=== PATIENT | female | born 1960 | race Caucasian/White ===

== ENCOUNTER → 2016-12-10 | Outpatient (CLI) | payer OTHER, BC | END | disposition home or self-care (01) | LOC: LABWHC1 08:07 | PROVIDERS: ATTEND Internal Medicine Endocrinology, Diabetes & Metabolism | DX: E03.9 Hypothyroidism, unspecified (principal) | CPT/HCPCS: 36415; 84443 ==

== ENCOUNTER → 2017-06-11 | Outpatient (CLI) | payer OTHER, BC | END | disposition home or self-care (01) | LOC: LABWHC1 07:30 | PROVIDERS: ATTEND Internal Medicine Endocrinology, Diabetes & Metabolism | DX: E03.8 Other specified hypothyroidism (principal) | CPT/HCPCS: 36415; 84443 ==

== ENCOUNTER → 2017-12-20 | Outpatient (CLI) | payer OTHER, BC | END | disposition home or self-care (01) | LOC: LABWHC1 07:45 | PROVIDERS: ATTEND Internal Medicine Endocrinology, Diabetes & Metabolism | DX: E03.8 Other specified hypothyroidism (principal) | CPT/HCPCS: 36415; 84443 ==

== ENCOUNTER → 2018-02-22 | Outpatient (CLI) | payer OTHER, BC ==
--- NOTE | 2018-02-24 09:56 | MM ---
Reason for exam: screening (asymptomatic). Last mammogram was performed 1 year and 4 months ago. History: Patient is postmenopausal and is nulliparous. Benign US breast aspiration single RT of the right breast, April 23, 2014. Benign cyst aspiration of the right breast, October 13, 2004. Benign ultrasound-guided cyst aspiration of the right breast, October 13, 2004. Cyst aspiration of the right breast. Excisional biopsy of the left breast. Took hormonal contraceptives for 10 years beginning at age 20. Physical Findings: A clinical breast exam by your physician is recommended on an annual basis and results should be correlated with mammographic findings. MG 3D Screening Mammo W/Cad Bilateral CC and MLO view(s) were taken. Prior study comparison: October 28, 2016, bilateral MG work up mamm w CAD BILAT. October 22, 2016, bilateral MG screening mammo w CAD. The breast tissue is heterogeneously dense. This may lower the sensitivity of mammography. No significant changes when compared with prior studies. ASSESSMENT: Negative, BI-RAD 1 RECOMMENDATION: Routine screening mammogram of both breasts in 1 year.
== END | disposition home or self-care (01) ==
LOC: RADMAMWWP 07:58
PROVIDERS: ATTEND Obstetrics & Gynecology
DX: Z12.31 Encounter for screening mammogram for malignant neoplasm of breast (principal)
CPT/HCPCS: 77063; 77067

== ENCOUNTER → 2018-06-07 | Outpatient (CLI) | payer OTHER, BC | END | disposition home or self-care (01) | LOC: LABWHC1 07:28 | PROVIDERS: ATTEND Internal Medicine Endocrinology, Diabetes & Metabolism | DX: E03.8 Other specified hypothyroidism (principal) | CPT/HCPCS: 36415; 84443 ==

== ENCOUNTER → 2019-02-24 | Outpatient (CLI) | payer OTHER ==
[2019-02-24 19:15] LABS: Albumin 4.5 g/dL (3.80-4.90); Albumin/Globulin Ratio 2.25 (1.60-3.17); Anion Gap 10.5 mmol/L (4.00-12.00); Calcium 10.2 mg/dL (8.7-10.3); Carbon Dioxide 26.5 mmol/L (21.6-31.8); Potassium 4.1 mmol/L (3.5-5.5); Total Bilirubin 0.5 mg/dL (0.2-1.2); Total Protein 6.5 g/dL (6.2-8.2)
== END ==
LOC: LABWHC1 13:06
PROVIDERS: ATTEND Specialist
DX: L65.9 Nonscarring hair loss, unspecified (principal)
CPT/HCPCS: 36415; 80053

== ENCOUNTER → 2019-06-14 | Outpatient (CLI) | payer OTHER ==
--- NOTE | 2019-06-14 14:26 | MM ---
Reason for exam: screening (asymptomatic). Last mammogram was performed 1 year and 4 months ago. History: Patient is postmenopausal and is nulliparous. Benign US breast aspiration single RT of the right breast, April 23, 2014. Benign cyst aspiration of the right breast, October 13, 2004. Benign ultrasound-guided cyst aspiration of the right breast, October 13, 2004. Cyst aspiration of the right breast. Excisional biopsy of the left breast. Took hormonal contraceptives for 10 years beginning at age 20. Physical Findings: A clinical breast exam by your physician is recommended on an annual basis and results should be correlated with mammographic findings. MG Screening Mammo w CAD Bilateral CC and MLO view(s) were taken. Prior study comparison: February 22, 2018, bilateral MG 3d screening mammo w/cad. October 28, 2016, bilateral MG work up mamm w CAD BILAT. The breast tissue is heterogeneously dense. This may lower the sensitivity of mammography. There are benign appearing round calcifications bilaterally. There is no discrete abnormality. ASSESSMENT: Benign, BI-RAD 2 RECOMMENDATION: Routine screening mammogram of both breasts in 1 year.
== END | disposition home or self-care (01) ==
LOC: RADMAMWWP 10:43
PROVIDERS: ATTEND Obstetrics & Gynecology
DX: Z12.31 Encounter for screening mammogram for malignant neoplasm of breast (principal)
CPT/HCPCS: 77067

== ENCOUNTER → 2020-02-01 | Outpatient (CLI) | payer SELFPAY ==
--- NOTE | 2020-02-01 10:07 | CT ---
EXAMINATION TYPE: CT heart w calcium score DATE OF EXAM: 02/01/2020 COMPARISON: None. HISTORY: Screening for cardiovascular disorder. 213.9 CT DLP: 84.8 mGycm Automated exposure control for dose reduction was used. CT CALCIUM SCORING Coronary calcium is a marker for plaque (fatty deposits) in a blood vessel or atherosclerosis (harden ing of the arteries). The presence and amount of calcium detected in a coronary artery by the CT sca n, indicates the presence and amount of atherosclerotic plaque. These calcium deposits appear years before the development of heart disease symptoms such as chest pain and shortness of breath. A calcium score is computed for each of the coronary arteries based upon the volume and density of th e calcium deposits. This can be referred to as your calcified plaque burden. It does not correspond directly to the percentage of narrowing in the artery but does correlate with the severity of the un derlying coronary atherosclerosis. PROCEDURE TECHNIQUE - Prospective Gating was used. Slice thickness: 3mm. Density threshold (HU): 130, Pixel threshold: 3, Algorithm: discrete. RESULTS Region: LM Calcium Score ([place]at[place]): 0 Region: RCA Calcium Score ([place]): 0 Region: LAD Calcium Score ([place]): 0 Region: CX Calcium Score ([place]at[place]): 0 Region: PDA Calcium Score ([place]): 0 Total: Calcium Score ([place]): 0 Incidental dominant right coronary artery filling PDA which is more common. No suspicious incidental finding in the [id number]. TOTAL CALCIUM SCORE: 0 IMPRESSION: Calcium Score: 0 Implication: No identifiable plaque. Risk of Coronary Artery Disease: Very low, generally less than 5%.
== END | disposition home or self-care (01) ==
LOC: RADCTMAIN 08:55
PROVIDERS: ATTEND Family Medicine
DX: Z13.6 Encounter for screening for cardiovascular disorders (principal); I25.10 Atherosclerotic heart disease of native coronary artery without angina pectoris; Z82.49 Family history of ischemic heart disease and other diseases of the circulatory system
CPT/HCPCS: 75571

== ENCOUNTER → 2021-01-15 | Outpatient (CLI) | payer OTHER ==
--- NOTE | 2021-01-17 11:36 | MM ---
Reason for exam: screening (asymptomatic). Last mammogram was performed 1 year and 7 months ago. History: Patient is postmenopausal and is nulliparous. Benign US breast aspiration single RT of the right breast, April 23, 2014. Benign cyst aspiration of the right breast, October 13, 2004. Benign ultrasound-guided cyst aspiration of the right breast, October 13, 2004. Cyst aspiration of the right breast. Excisional biopsy of the left breast. Took hormonal contraceptives for 10 years beginning at age 20. Physical Findings: A clinical breast exam by your physician is recommended on an annual basis and results should be correlated with mammographic findings. MG 3D Screening Mammo W/Cad Bilateral CC and MLO view(s) were taken. Prior study comparison: June 14, 2019, bilateral MG screening mammo w CAD. February 22, 2018, bilateral MG 3d screening mammo w/cad. The breast tissue is heterogeneously dense. This may lower the sensitivity of mammography. Finding: There is a suggested obscured oval mass in the upper outer quadrant, anterior, middle position of the right breast. There is a chronic nodularity in the left breast. ASSESSMENT: Incomplete: need additional imaging evaluation, BI-RAD 0 RECOMMENDATION: Ultrasound of the right breast. [facility] will attempt to contact patient to return for ultrasound.
== END | disposition home or self-care (01) ==
LOC: RADMAMWWP 14:33
PROVIDERS: ATTEND Family Medicine
DX: Z12.31 Encounter for screening mammogram for malignant neoplasm of breast (principal)
CPT/HCPCS: 77063; 77067; 82310; 83970

== ENCOUNTER → 2021-01-24 | Outpatient (CLI) | payer OTHER ==
--- NOTE | 2021-01-24 14:05 | USB ---
Reason for exam: additional evaluation requested from abnormal screening. History: Patient is postmenopausal and is nulliparous. Benign US breast aspiration single RT of the right breast, April 23, 2014. Benign cyst aspiration of the right breast, October 13, 2004. Benign ultrasound-guided cyst aspiration of the right breast, October 13, 2004. Cyst aspiration of the right breast. Excisional biopsy of the left breast. Took hormonal contraceptives for 10 years beginning at age 20. Physical Findings: Nurse did not find any significant physical abnormalities on exam. US Breast Workup Limited RT Technologist: Mariel Murphy Right limited breast ultrasound including focal area of concern, retroareolar and axilla demonstrates a 0.7 x 0.8 x 0.3cm oval, cystic lesion at 10 o'clock, a 1.4 x 0.7cm cystic cluster versus ducal cluster at 11 o'clock, a 0.7 x 0.7 x 0.4cm cystic cluster at 11 o'clock, a 0.3 x 0.3 x 0.2cm lesion too small to characterize at 9 o'clock, a 0.8 x 0.8 x 0.5cm cystic cluster at 9 o'clock and a duct at 9 o'clock. These results were verbally communicated with the patient and result sheet given to the patient on 01/24/21. ASSESSMENT: Probably benign, BI-RAD 3 RECOMMENDATION: Follow-up diagnostic mammogram of the right breast in 6 months.
== END ==
LOC: RADUSWWP 12:56
PROVIDERS: ATTEND Family Medicine
DX: N60.01 Solitary cyst of right breast (principal); Z78.0 Asymptomatic menopausal state

== ENCOUNTER → 2021-10-09 | Outpatient (CLI) | payer OTHER ==
--- NOTE | 2021-10-09 14:18 | MM ---
Reason for exam: follow-up at short interval from prior study. Last mammogram was performed 9 months ago. History: Patient is postmenopausal and is nulliparous. Benign US breast aspiration single RT of the right breast, April 23, 2014. Benign cyst aspiration of the right breast, October 13, 2004. Benign ultrasound-guided cyst aspiration of the right breast, October 13, 2004. Cyst aspiration of the right breast. Excisional biopsy of the left breast. Took hormonal contraceptives for 10 years beginning at age 20. Physical Findings: Nurse did not find any significant physical abnormalities on exam. MG 3D Diag Mammo W/Cad RT CC and MLO view(s) were taken of the right breast. Prior study comparison: January 15, 2021, bilateral MG 3d screening mammo w/cad. June 14, 2019, bilateral MG screening mammo w CAD. Focal asymmetry upper outer quadrant right breast is persistent. Ultrasound is recommended. These results were verbally communicated with the patient and result sheet given to the patient on 10/09/21. ASSESSMENT: Incomplete: need additional imaging evaluation, BI-RAD 0 RECOMMENDATION: Ultrasound of the right breast.
--- NOTE | 2021-10-09 14:20 | USB ---
Reason for exam: additional evaluation requested from abnormal screening. History: Patient is postmenopausal and is nulliparous. Benign US breast aspiration single RT of the right breast, April 23, 2014. Benign cyst aspiration of the right breast, October 13, 2004. Benign ultrasound-guided cyst aspiration of the right breast, October 13, 2004. Cyst aspiration of the right breast. Excisional biopsy of the left breast. Took hormonal contraceptives for 10 years beginning at age 20. US Breast Limited RT Right limited breast ultrasound including focal area of concern, retroareolar and axilla demonstrates three oval, cystic clusters measuring 1.0 x 0.9 x 0.4cm at 12 o'clock, 2.0 x 1.1 x 0.6cm at 11 o'clock and 0.5 x 0.3cm at 11 o'clock. These results were verbally communicated with the patient and result sheet given to the patient on 10/09/21. ASSESSMENT: Benign, BI-RAD 2 RECOMMENDATION: Return to routine screening mammogram schedule for both breasts. Back on schedule for December 2021.
== END | disposition home or self-care (01) ==
LOC: RADMAMWWP 09:02
PROVIDERS: ATTEND Family Medicine
DX: N60.01 Solitary cyst of right breast (principal); N64.89 Other specified disorders of breast; Z78.0 Asymptomatic menopausal state
CPT/HCPCS: 77061; 77065

== ENCOUNTER 2021-11-04 16:14 | Observation (INO) | payer OTHER ==
[2021-11-04 17:16] LABS: Basophils # (A) 0.1 k/uL (0-0.2); Basophils % (A) 1 %; Eosinophils # (A) 0.1 k/uL (0-0.7); Eosinophils % (A) 1 %; HCT 42.7 % (34.0-46.0); HGB 14.4 gm/dL (11.4-16.0); Lymphocytes # (A) 1.4 k/uL (1.0-4.8); Lymphocytes % (A) 16 %; MCH 31.1 pg (25.0-35.0); MCHC 33.8 g/dL (31.0-37.0); Mean Platelet Volume 7.3; Monocytes # (A) 0.4 k/uL (0-1.0); Monocytes % (A) 4 %; Neutrophils # (A) 6.9 k/uL (1.3-7.7); Neutrophils % (A) 78 %; Platelet Count 329 k/uL (150-450); RBC 4.64 m/uL (3.80-5.40); RDW 11.9 % (11.5-15.5); WBC 8.9 k/uL (3.8-10.6)
[2021-11-04 17:30] LABS: INR 0.9 (<1.2); Partial Thromboplastin Time 24.5 sec (22.0-30.0); Prothrombin Time 9.7 sec (9.0-12.0)
--- NOTE | 2021-11-04 17:30 | XR ---
EXAMINATION TYPE: XR chest 2V DATE OF EXAM: 11/04/2021 5:03 PM COMPARISON:None CLINICAL INDICATION:Female, 61 years old with history of Chest Pain; TECHNIQUE: Frontal and lateral views of the chest. FINDINGS: Lungs/Pleura: There is no evidence of pleural effusion, focal consolidation, or pneumothorax. Pulmonary vascularity: Unremarkable. Heart/mediastinum: Cardiomediastinal silhouette is unremarkable. Musculoskeletal: No acute osseous pathology. IMPRESSION: No acute cardiopulmonary disease/process.
--- NOTE | 2021-11-04 17:30 | ED ---
Chest Pain HPI - General Chief Complaint: Chest Pain Stated Complaint: Chest pain,back pain Time Seen by Provider: 11/04/21 16:48 Source: patient Mode of arrival: ambulatory Limitations: no limitations - History of Present Illness Initial Comments: 61-year-old female past history of Graves' disease presents emergency room and was reported chest pain. States that the chest pain started around 3 PM today while she was driving. Pain is graded as an 8 out of 10 in intensity and located in the substernal region of her chest. She has associated nausea and had 2 episodes of vomiting. Patient describes it as a pressure sensation. No diaphoresis. No cough, fevers or chills. Tried to take an aspirin however through it back up. History of similar in the past. Denies previous history of cardiac disease. Denies fevers or shortness of breath. Pain radiates straight through to the patient's back. No history of DVT or PE. No calf pain or swelli ng. No other alleviating, precipitating or modifying factors - Related Data Home Medications Medication Instructions Recorded Confirmed Ascorbic Acid [Vitamin C] 1,000 mg PO DAILY 11/04/21 11/04/21 Cholecalciferol [Vitamin D3 (25 25 mcg PO DAILY 11/04/21 11/04/21 Mcg = 1000 Iu)] Levothyroxine Sodium [Synthroid] 112 mcg PO DAILY 11/04/21 11/04/21 Magnesium 250 mg PO DAILY 11/04/21 11/04/21 Zinc 50 mg PO DAILY 11/04/21 11/04/21 hydroCHLOROthiazide [Hydrodiuril] 12.5 mg PO DAILY 11/04/21 11/04/21 Allergies Allergy/AdvReac Type Severity Reaction Status Date / Time No Known Allergies Allergy Verified 11/04/21 19:56 Review of Systems ROS Statement: Those systems with pertinent positive or pertinent negative responses have been documented in the HPI. ROS Other: All systems not noted in ROS Statement are negative. EKG Findings - EKG Comments: EKG Findings:: EKG demonstrates a sinus rhythm with a ventricular rate of 74. GA interval 168. QRS 90. QTC 441. No acute ST segment elevations or depressions concerning for ischemic changes Past Medical History Past Medical History: Hypertension Additional Past Medical History / Comment(s): Graves disease, fluid retention History of Any Multi-Drug Resistant Organisms: C-DIFF Date of last positivie culture/infection: 01/2013 Past Surgical History: Appendectomy Additional Past Surgical History / Comment(s): right eye, Past Psychological History: No Psychological Hx Reported Smoking Status: Never smoker Past Alcohol Use History: Occasional Past Drug Use History: None Reported General Exam Limitations: no limitations Course Vital Signs 11/04/21 11/04/21 11/04/21 16:25 16:41 16:44 Temperature 97.5 F L Pulse Rate 63 78 74 Respiratory 18 16 18 Rate Blood Pressure 181/99 185/93 176/84 O2 Sat by Pulse 98 99 98 Oximetry 11/04/21 11/04/21 11/04/21 18:00 18:30 19:41 Temperature Pulse Rate 69 69 73 Respiratory 20 21 18 Rate Blood Pressure 175/75 166/72 152/77 O2 Sat by Pulse 97 100 100 Oximetry Chest Pain MDM - MDM Upon arrival the patient is placed into room 1. Thorough history and physical exam was performed. 12-lead EKG was obtained and the patient is placed on continuous pulse ox and cardiac monitoring. Laboratory studies are obtained. Patient given 324 mg of aspirin and a sublingual nitro. First troponin is negative. Chest x-ray demonstrates no acute process. CT of the patient's chest demonstrates no evidence of pulmonary embolism. Patient is reevaluated and denies having any improvement in her pain with the nitro menstruation. She is given informal grams of morphine and reevaluated. Reports improvement in her symptoms at this time. I recommended hospitalization in order to trend her troponins for which the patient did agree to. Patient will be admitted to [facility]. She was taken to the floor in stable condition Disposition Clinical Impression: Chest pain Disposition: ADMITTED IP TO THIS HOSP Condition: Stable Is patient prescribed a controlled substance at d/c from ED?: No Decision to Admit Reason: Admit from EC Decision Date: 11/04/21 Decision Time: 19:28
[2021-11-04 17:34] LABS: Albumin 4.7 g/dL (3.5-5.0); Calcium 9.9 mg/dL (8.4-10.2); Magnesium 2.1 mg/dL (1.6-2.3); Potassium 3.8 mmol/L (3.5-5.1); Total Bilirubin 0.6 mg/dL (0.2-1.3); Total Protein 7.7 g/dL (6.3-8.2)
[2021-11-04] MEDS ORDERED: ASPIRIN 81 MG PO STA (17:40)
[2021-11-04] MEDS ORDERED: NITROGLYCERIN SL TABS 0.4 MG TAB SUBLINGUAL STA (17:40)
[2021-11-04] MEDS ORDERED: ONDANSETRON 4 MG/2 ML VIAL IVP STA (17:40)
[2021-11-04] MEDS ORDERED: MORPHINE SULFATE 4 MG/ML SYRINGE IVP STA (18:50)
--- NOTE | 2021-11-04 19:01 | CT ---
EXAMINATION TYPE: CT angio chest CT DLP: 421.9 mGycm, Automated exposure control for dose reduction was used. DATE OF EXAM: 11/04/2021 6:22 PM COMPARISON: Chest radiograph from same day. . CLINICAL INDICATION:Female, 61 years old with history of chest pain; PHH, chest pain TECHNIQUE/CONTRAST: CTA scan of the thorax is performed with IV Contrast, patient injected with 100 mL of Isovue 370, pul monary embolism protocol. MIP images are created and reviewed. FINDINGS: Pulmonary Artery: There is no evidence for a filling defect within the pulmonary vasculature to sugge st acute pulmonary embolism. The pulmonary artery is of normal size. Lungs/Pleura: No evidence of focal consolidation, pleural effusion or pneumothorax. Airway: Patent and grossly unremarkable. Heart: Within normal limits for size. Vasculature: No evidence of aortic aneurysm. Mediastinum: No gross evidence of adenopathy. Musculoskeletal: No acute osseous abnormalities Soft Tissues: Unremarkable. Lower neck: No significant findings. Upper Abdomen: No significant findings. IMPRESSION: No evidence of pulmonary embolism.
[2021-11-04] MEDS ORDERED: NALOXONE 0.4 MG/ML 1 ML VIAL IV PRN (19:29)
[2021-11-04] MEDS ORDERED: ONDANSETRON 4 MG/2 ML VIAL IVP PRN (22:38)
[2021-11-04] MEDS ORDERED: ACETAMINOPHEN TAB 325 MG TAB PO PRN (22:38)
[2021-11-05] MEDS ORDERED: LEVOTHYROXINE 112 MCG TAB PO SCH (06:30)
[2021-11-05] MEDS ORDERED: ASPIRIN 81 MG PO SCH (09:00)
[2021-11-05] MEDS ORDERED: hydroCHLOROthiazide 12.5 MG CAP PO SCH (09:00)
[2021-11-05 09:37] LABS: Basophils # (A) 0.04 X 10*3/uL (0.00-0.10); Basophils % (A) 0.4 %; Eosinophils # (A) 0.03 X 10*3/uL (0.04-0.35); Eosinophils % (A) 0.3 %; HCT 39.6 % (37.2-46.3); HGB 13.2 g/dL (12.0-15.0); Lymphocytes # (A) 1.42 X 10*3/uL (0.90-5.00); Lymphocytes % (A) 15.3 %; MCHC 33.3 g/dL (32.0-37.0); Mean Platelet Volume 9.9 fL (9.5-12.2); Monocytes # (A) 0.71 X 10*3/uL (0.20-1.00); Monocytes % (A) 7.7 %; Neutrophils # (A) 7.04 X 10*3/uL (1.80-7.70); Neutrophils % (A) 76.1 %; Platelet Count 317 X 10*3/uL (140-440); RBC 4.26 X 10*6/uL (4.10-5.20); WBC 9.26 X 10*3/uL (4.50-10.00)
--- NOTE | 2021-11-05 09:45 | P.CRDCN ---
History of Present Illness Consult date: 11/05/21 History of present illness: HISTORY OF PRESENT ILLNESS: This is a 61-year-old female with a past medical history significant for hypertension and hypothyroidism. Patient does not follow with a test tube maker. We have been asked to see the patient in consultation for chest pain. Patient examined at the bedside. Patient states yesterday she was taking her brother to a doctor's appointment and stopped for lunch afterwards her to [place]. Sh e states when she got home she began having chest discomfort. She states the pain was in the middle of her chest and went through her chest into her back. She reports mild shortness of breath at the time secondary to the pain. She denied any diaphoresis. She reports nausea. She states that she took an aspirin at home but ended up throwing it up. She states the pain lasted for approximately 5 hours and was finally relieved when she came to the hospital and received morphine. She currently denies chest pain or pressure. The patient does report a history of high blood pressure. She takes her blood pressure at home and it usually runs between 120 and 140. Patient's blood pressure was e levated when she first came to the hospital with a systolic in the 180s. Her blood pressure this morning has improved to 150/81. Patient is a nonsmoker. She denies any drug use or marijuana use. She reports alcohol use 1-2 times per month. She reports a family history of coronary artery disease. She states her mom and her sister both had heart attacks at the age of 57 and have both had bypass surgery. EKG reveals sinus mechanism with no signs of acute ischemia. Evidence of left ventricular hypertrophy. Chest xray no acute cardiopulmonary disease or process Chest CTA: No evidence of pulmonary embolism Laboratory data: WBC 9.26. Hemoglobin 13.2. Platelet count 317. Sodium 139. Potassium 3.8. BUN 19. Creatinine 0.83. Troponin negative 3. ProBNP 43. Current home cardiac medications include hydrochlorothiazide 12.5 mg daily REVIEW OF SYSTEMS: At the time of my exam: CONSTITUTIONAL: Denies fever or chills. HEENT: Denies blurred vision, vision changes, or eye pain. Denies hemoptysis CARDIOVASCULAR: Denies chest pain. Denies orthopnea. Denies PND. Denies palpitations RESPIRATORY: Denies shortness of breath. GASTROINTESTINAL: Denies abdominal pain. Denies nausea or vomiting. HEMATOLOGIC: Denies bleeding disorders. GENITOURINARY: Denies any blood in urine. SKIN: Denies pruitis. Denies rash. PHYSICAL EXAM: VITAL SIGNS: Reviewed. GENERAL: Well-developed in no acute distress. HEENT: Head is normocephalic. Pupils are equal, round. Sclerae anicteric. Mucous membranes of the mouth are moist. Neck supple. No JVD or thyromegaly LUNGS: Respirations even and unlabored. Lungs essentially clear to auscultation bilaterally. HEART: Regular rate and rhythm. S1 and S2 heard. ABDOMEN: Soft. Nondistended. Nontender. EXTREMITIES: Normal range of motion. No clubbing or cyanosis. Peripheral pulses intact. No lower extremity edema NEUROLOGIC: Awake and alert. Oriented x 3. ASSESSMENT: Chest pain, troponin negative x 3 Hypertension, uncontrolled on admission, improving Hypothyroidism Family history of premature coronary artery disease PLAN: An acute coronary event has been ruled out Obtain 2D echo to assess cardiac structure and function Continue to monitor blood pressure. If pressures remain on the higher side, will adjust medication regimen. Patient states her SBP at home runs 120-140. Further recommendations pending evaluation by Dr. Fontaine. Anticipate stress testing today. Nurse practitioner note has been reviewed by physician. Signing provider agrees with the documented findings, assessment, and plan of care. Past Medical History Past Medical History: Hypertension Additional Past Medical History / Comment(s): Graves disease, fluid retention History of Any Multi-Drug Resistant Organisms: C-DIFF Date of last positivie culture/infection: 01/2013 MDRO Source:: appendix Past Surgical History: Appendectomy Additional Past Surgical History / Comment(s): right eye, Past Psychological History: No Psychological Hx Reported Smoking Status: Never smoker Past Alcohol Use History: Occasional Past Drug Use History: None Reported Medications and Allergies Home Medications Medication Instructions Recorded Confirmed Type Ascorbic Acid [Vitamin C] 1,000 mg PO DAILY 11/04/21 11/04/21 History Cholecalciferol [Vitamin D3 (25 25 mcg PO DAILY 11/04/21 11/04/21 History Mcg = 1000 Iu)] Levothyroxine Sodium [Synthroid] 112 mcg PO DAILY 11/04/21 11/04/21 History Magnesium 250 mg PO DAILY 11/04/21 11/04/21 History Zinc 50 mg PO DAILY 11/04/21 11/04/21 History hydroCHLOROthiazide [Hydrodiuril] 12.5 mg PO DAILY 11/04/21 11/04/21 History Allergies Allergy/AdvReac Type Severity Reaction Status Date / Time No Known Allergies Allergy Verified 11/04/21 19:56 Physical Exam Vitals: Vital Signs Temp Pulse Pulse Resp BP BP Pulse Ox 11/05/21 07:00 98.2 F 76 18 150/81 99 11/05/21 02:00 98.6 F 96 16 143/82 98 11/04/21 20:00 98.5 F 72 16 159/85 99 11/04/21 19:41 73 18 152/77 100 11/04/21 18:30 69 21 166/72 100 11/04/21 18:00 69 20 175/75 97 11/04/21 16:44 74 18 176/84 98 11/04/21 16:41 78 16 185/93 99 11/04/21 16:25 97.5 F L 63 18 181/99 98 Intake and Output 11/04/21 11/05/21 11/05/21 22:59 06:59 14:59 Other: # Voids 1 2 Weight 83.007 kg Results 11/05/21 06:15 11/04/21 17:00 Cardiac Enzymes 11/04/21 11/04/21 11/04/21 Range/Units 17:00 17:00 22:17 AST 27 (14-36) U/L Troponin I <0.012 0.019 (0.000-0.034) ng/mL 11/05/21 Range/Units 00:04 AST (14-36) U/L Troponin I <0.012 (0.000-0.034) ng/mL Coagulation 11/04/21 Range/Units 17:00 PT 9.7 (9.0-12.0) sec APTT 24.5 (22.0-30.0) sec CBC 11/04/21 Range/Units 17:00 WBC 8.9 (3.8-10.6) k/uL RBC 4.64 (3.80-5.40) m/uL Hgb 14.4 (11.4-16.0) gm/dL Hct 42.7 (34.0-46.0) % Plt Count 329 (150-450) k/uL Comprehensive Metabolic Panel 11/04/21 Range/Units 17:00 Sodium 139 (137-145) mmol/L Potassium 3.8 (3.5-5.1) mmol/L Chloride 103 (98-107) mmol/L Carbon Dioxide 23 (22-30) mmol/L BUN 19 H (7-17) mg/dL Creatinine 0.83 (0.52-1.04) mg/dL Glucose 121 H (74-99) mg/dL Calcium 9.9 (8.4-10.2) mg/dL AST 27 (14-36) U/L ALT 19 (4-34) U/L Alkaline Phosphatase 96 (38-126) U/L Total Protein 7.7 (6.3-8.2) g/dL Albumin 4.7 (3.5-5.0) g/dL Current Medications Generic Name Dose Route Start Last Admin Trade Name Freq PRN Reason Stop Dose Admin Acetaminophen 650 mg 11/04/21 22:38 Acetaminophen Tab 325 Mg Tab PO Q6HR PRN Fever and/ or Pain Famotidine 20 mg 11/05/21 09:00 Famotidine 20 Mg/2 Ml Vial IV Q12HR [facility] Heparin Sodium (Porcine) 5,000 unit 11/05/21 09:00 Heparin Sodium,Porcine/Pf 5,000 Unit/0.5 Ml Syringe SQ Q12HR JOSE Hydrochlorothiazide 12.5 mg 11/05/21 09:00 Hydrochlorothiazide 12.5 Mg Cap PO DAILY JOSE Levothyroxine Sodium 112 mcg 11/05/21 06:30 11/05/21 05:13 Levothyroxine 112 Mcg Tab PO 112 mcg DAILY@0630 JOSE Administration Naloxone HCl 0.2 mg 11/04/21 19:29 Naloxone 0.4 Mg/Ml 1 Ml Vial IV Q2M PRN Opioid Reversal Ondansetron HCl 4 mg 11/04/21 22:38 Ondansetron 4 Mg/2 Ml Vial IVP Q6HR PRN Nausea And Vomiting Intake and Output 11/04/21 11/05/21 11/05/21 22:59 06:59 14:59 Other: # Voids 1 2 Weight 83.007 kg 11/04/21 17:00 11/04/21 17:00
--- NOTE | 2021-11-05 10:24 | ECHOF ---
Referral Reason:Rule out heart disease MEASUREMENTS -------- HEIGHT: 162.6 cm WEIGHT: 83.0 kg BP: 143/82 RVIDd: 2.9 cm (< 3.3) IVSd: 1.1 cm (0.6 - 1.1) LVIDd: 4.3 cm (3.9 - 5.3) LVPWd: 1.0 cm (0.6 - 1.1) IVSs: 1.5 cm LVIDs: 2.9 cm LVPWs: 1.8 cm LA Diam: 3.3 cm (2.7 - 3.8) LAESV Index (A-L): 25.41 ml/m Ao Diam: 3.1 cm (2.0 - 3.7) AV Cusp: 2.3 cm (1.5 - 2.6) MV EXCURSION: 17.614 mm (> 18.000) MV EF SLOPE: 127 mm/s (70 - 150) EPSS: 0.3 cm MV E Abilio: 0.96 m/s MV DecT: 163 ms MV A Abilio: 1.00 m/s MV E/A Ratio: 0.97 RAP: 5.00 mmHg RVSP: 29.84 mmHg FINDINGS -------- Sinus rhythm. This was a technically adequate study. The left ventricular size is normal. There is borderline concentric left ventricular hypertrophy. Overall left ventricular systolic function is normal with, an EF between 60 - 65 %. The right ventricle is normal in size. Normal LA size by volume 22+/-6 ml/m2. The right atrium is normal in size. Interatrial and interventricular septum intact. The aortic valve is trileaflet, and appears structurally normal. No aortic stenosis or regurgitation. Mild mitral annular calcification present. Mild tricuspid regurgitation present. Right ventricular systolic pressure is normal at < 35 mmHg. Trace/mild (physiologic) pulmonic regurgitation. The aortic root size is normal. Normal inferior vena cava with normal inspiratory collapse consistent with estimated right atrial pre ssure of 5 mmHg. There is no pericardial effusion. CONCLUSIONS -------- 1. The left ventricular size is normal. 2. There is borderline concentric left ventricular hypertrophy. 3. Overall left ventricular systolic function is normal with, an EF between 60 - 65 %. 4. The aortic valve is trileaflet, and appears structurally normal. No aortic stenosis or regurgitati on. 5. Mild mitral annular calcification present. 6. Mild tricuspid regurgitation present. 7. Trace/mild (physiologic) pulmonic regurgitation. 8. There is no pericardial effusion. [employer]: Harriet Lisa RDCS
[2021-11-05] MEDS: FAMOTIDINE 20 MG/2 ML VIAL IV SCH ×2 (10:45→10:51)
[2021-11-05] MEDS: HEPARIN SODIUM,PORCINE/PF 5,000 UNIT/0.5 ML SYRINGE SQ SCH ×2 (10:46→10:51)
[2021-11-05 11:21] LABS: African American GFR (CKD) 92.2 (60.0-200.0); Anion Gap 12.2 mmol/L (10.00-18.00); Blood Urea Nitrogen 12.8 mg/dL (9.0-27.0); Calcium 9.5 mg/dL (8.7-10.3); Carbon Dioxide 24.8 mmol/L (20.0-27.5); Non-African American GFR(CKD) 79.6 (60.0-200.0); Potassium 3.8 mmol/L (3.5-5.5)
--- NOTE | 2021-11-05 11:54 | P.HPIM ---
History of Present Illness This is a pleasant 61 years old female with past medical history of Hypertension,Graves disease, fluid retention, C-DIFF Patient presents because of chest pain which started yesterday it was described by the patient as severe nonspecific pain but now is resolved as 0/10 as she describes. The pain was radiating to the back. She vomited twice yesterday and this morning. No abdominal pain or diarrhea. No shortness breath or coughing. No headache or weakness. Vitas looks stable Labs unremarkable and including CBC, INR, BMP, liver enzymes, lipase Troponin are negative this and 0.012 and 0.019. No varus not detected. EKG showing normal sinus rhythm at [address]-T changes and QTC is 441 CTA of the chest: No evidence of pulmonary embolism In the emergency room patient was started on aspirin and morphine. She has been evaluated by tree specialist this morning and she's going for stress test Review of Systems Review of systems CONSTITUTIONAL: No fever, no malaise, no fatigue. HEENT: No recent visual problems or hearing problems. Denied any sore throat. CARDIOVASCULAR: No orthopnea, PND, no palpitations, no syncope. PULMONARY: No shortness of breath, no cough, no hemoptysis. GASTROINTESTINAL: No diarrhea, no nausea, no vomiting, no abdominal pain. Normoactive bowel sounds. NEUROLOGICAL: No headaches, no weakness, no numbness. HEMATOLOGICAL: Denies any bleeding or petechiae. GENITOURINARY: Denies any burning micturition, frequency, or urgency. MUSCULOSKELETAL/RHEUMATOLOGICAL: Denies any joint pain, swelling, or any muscle pain. ENDOCRINE: Denies any polyuria or polydipsia. Past Medical History Past Medical History: Hypertension Additional Past Medical History / Comment(s): Graves disease, fluid retention History of Any Multi-Drug Resistant Organisms: C-DIFF Date of last positivie culture/infection: 01/2013 MDRO Source:: appendix Past Surgical History: Appendectomy Additional Past Surgical History / Comment(s): right eye, Past Psychological History: No Psychological Hx Reported Smoking Status: Never smoker Past Alcohol Use History: Occasional Past Drug Use History: None Reported Medications and Allergies Home Medications Medication Instructions Recorded Confirmed Type Ascorbic Acid [Vitamin C] 1,000 mg PO DAILY 11/04/21 11/04/21 History Cholecalciferol [Vitamin D3 (25 25 mcg PO DAILY 11/04/21 11/04/21 History Mcg = 1000 Iu)] Levothyroxine Sodium [Synthroid] 112 mcg PO DAILY 11/04/21 11/04/21 History Magnesium 250 mg PO DAILY 11/04/21 11/04/21 History Zinc 50 mg PO DAILY 11/04/21 11/04/21 History hydroCHLOROthiazide [Hydrodiuril] 12.5 mg PO DAILY 11/04/21 11/04/21 History Allergies Allergy/AdvReac Type Severity Reaction Status Date / Time No Known Allergies Allergy Verified 11/04/21 19:56 Physical Exam Vitals: Vital Signs Temp Pulse Pulse Resp BP BP Pulse Ox 11/04/21 20:00 98.5 F 72 16 159/85 99 11/04/21 19:41 73 18 152/77 100 11/04/21 18:30 69 21 166/72 100 11/04/21 18:00 69 20 175/75 97 11/04/21 16:44 74 18 176/84 98 11/04/21 16:41 78 16 185/93 99 11/04/21 16:25 97.5 F L 63 18 181/99 98 Intake and Output 11/04/21 11/04/21 11/05/21 14:59 22:59 06:59 Other: # Voids 1 Weight 83.007 kg GENERAL: The patient is alert and oriented x3, not in any acute distress. Well developed, well nourished. HEENT: Pupils are round and equally reacting to light. EOMI. No scleral icterus. No conjunctival pallor. Normocephalic, atraumatic. No pharyngeal erythema. No thyromegaly. CARDIOVASCULAR: S1 and S2 present. No murmurs, rubs, or gallops. PULMONARY: Chest is clear to auscultation, no wheezing or crackles. ABDOMEN: Soft, nontender, nondistended, normoactive bowel sounds. No palpable organomegaly. MUSCULOSKELETAL: No joint swelling or deformity. -EXTREMITIES: No cyanosis, clubbing, bilateral pitting edema NEUROLOGICAL: Gross neurological examination did not reveal any focal deficits. SKIN: No rashes. no petechiae. Results CBC & Chem 7: 11/05/21 06:15 11/05/21 06:15 Labs: Abnormal Lab Results - Last 24 Hours (Table) 11/04/21 Range/Units 17:00 BUN 19 H (7-17) mg/dL Glucose 121 H (74-99) mg/dL Thrombosis Risk Factor Assmnt - Choose All That Apply Any of the Below Risk Factors Present?: Yes Each Factor Represents 1 point: Obesity (BMI >25) Other Risk Factors: Yes Each Risk Factor Represents 2 Points: Age 61-74 years Other congenital or acquired thrombophilia - If yes, enter type in comment: No Thrombosis Risk Factor Assessment Total Risk Factor Score: 3 Thrombosis Risk Factor Assessment Level: Moderate Risk Assessment and Plan Assessment: chest pain, rule out cardiac causes bilateral leg swelling Hypertension, uncontrolled admission History of Graves' disease History of C. diff Plan: This is a pleasant 61 years old female who presents with chest pain We'll do straight troponin, echocardiogram Cardiology consult recommended stress test which is pending Continue with aspirin Check ultrasound of the legs Labs and medication were reviewed.. Continue same treatment. Continue with symptomatic treatment. Resume home medication. Monitor lytes and vitals. DVT and GI prophylaxis. Further recommendations as per clinical course of the patient DVT prophylaxis: Subcutaneous heparin GI Prophylaxis: Pepcid PT/OT: Pending Prognosis is guarded
--- NOTE | 2021-11-05 13:52 | US ---
EXAMINATION TYPE: US venous doppler duplex LE DATE OF EXAM: 11/05/2021 1:40 PM COMPARISON: NONE CLINICAL HISTORY: leg swelling. SIDE PERFORMED: Bilateral TECHNIQUE: The lower extremity deep venous system is examined utilizing real time linear array sonog norma with graded compression, doppler sonography and color-flow sonography. VESSELS IMAGED: Common Femoral Vein Deep Femoral Vein Greater Saphenous Vein * Femoral Vein Popliteal Vein Small Saphenous Vein * Proximal Calf Veins (* superficial vessels) Right Leg: Negative for DVT Left Leg: Negative for DVT IMPRESSION: Grayscale, color doppler, spectral doppler imaging performed of the deep veins of the lo wer extremities. There is normal flow, compressibility, vascular waveforms.
--- NOTE | 2021-11-05 14:02 | ECHOS ---
STRESS ECHOCARDIOGRAM INDICATIONS: Chest pain. BASELINE HEART RATE: 85 BASELINE BLOOD PRESSURE: 141/52 MAXIMUM HEART RATE: 161 MAXIMUM BLOOD PRESSURE: 202/74 85% MPHR: 135 100% MPHR: 159 METS: 5.9 MAXIMUM STAGE REACHED: 2 TOTAL EXERCISE TIME: 6 min. CLINICAL INFORMATION: Baseline EKG shows sinus rhythm, normal axis, normal intervals. Patient exercised on Joe protocol for a total of 6 minutes, achieving 7 METS, 100% of predicted maximal heart rate, without chest pain or diagnostic ST-segment depression. Echo images are technically suboptimal and a contrast agent was used to enhance endocardial visualization. Baseline echo shows normal left ventricular size, wall motion and systolic function. Post exercise there is normal hyperdynamic response of all segments of myocardium noted. CONCLUSIONS: 1. Average exercise tolerance. 2. Negative stress test by EKG criteria. 3. Negative stress echo. MMBETHELL / IJN: [id number] /
[2021-11-05 14:43] VITALS: BP 138/85; PULSE 83; RESP 20; TEMP 98.1
== END 2021-11-05 16:36 | disposition home or self-care (01) ==
LOC: EC 16:14 → 6NMEDSUR 19:29
PROVIDERS: ADMIT Hospitalist; ATTEND Hospitalist
DX: R07.89 Other chest pain (principal); I11.9 Hypertensive heart disease without heart failure; E05.00 Thyrotoxicosis with diffuse goiter without thyrotoxic crisis or storm; R11.2 Nausea with vomiting, unspecified; R06.02 Shortness of breath; E03.9 Hypothyroidism, unspecified; R60.9 Edema, unspecified; E66.9 Obesity, unspecified; Z68.31 Body mass index [BMI] 31.0-31.9, adult; Z79.890 Hormone replacement therapy; Z79.899 Other long term (current) drug therapy; Z16.39 Resistance to other specified antimicrobial drug; Z90.49 Acquired absence of other specified parts of digestive tract; Z98.890 Other specified postprocedural states; Z82.49 Family history of ischemic heart disease and other diseases of the circulatory system
CPT/HCPCS: 96374; 96375; 99285; 36415; 93005; 93306; 93351; 83880; 80053; 80048; 83690; 83735; 84484 ×2; 85025 ×2; 85610; 85730; 87635; 71046; 93970; 71275; G0378 ×2; J2270; J2405; Q9950; Q9967

== ENCOUNTER → 2022-04-02 | Outpatient (CLI) | payer OTHER ==
--- NOTE | 2022-04-03 12:38 | MM ---
Reason for exam: screening (asymptomatic). Last mammogram was performed 6 months ago. History: Patient is postmenopausal and is nulliparous. Benign US breast aspiration single RT of the right breast, April 23, 2014. Benign cyst aspiration of the right breast, October 13, 2004. Benign ultrasound-guided cyst aspiration of the right breast, October 13, 2004. Cyst aspiration of the right breast. Excisional biopsy of the left breast. Took hormonal contraceptives for 10 years beginning at age 20. Physical Findings: A clinical breast exam by your physician is recommended on an annual basis and results should be correlated with mammographic findings. MG 3D Screening Mammo W/Cad Bilateral CC and MLO view(s) were taken. Prior study comparison: October 09, 2021, right breast MG 3d diag mammo w/cad RT. January 15, 2021, bilateral MG 3d screening mammo w/cad. The breast tissue is heterogeneously dense. This may lower the sensitivity of mammography. Stable benign calcifications. There is no discrete abnormality. No significant changes when compared with prior studies. ASSESSMENT: Benign, BI-RAD 2 RECOMMENDATION: Routine screening mammogram of both breasts in 1 year.
== END | disposition home or self-care (01) ==
LOC: RADMAMWWP 15:14
PROVIDERS: ATTEND Family Medicine
DX: Z12.31 Encounter for screening mammogram for malignant neoplasm of breast (principal); Z78.0 Asymptomatic menopausal state
CPT/HCPCS: 77063; 77067

== ENCOUNTER 2023-02-16 03:38 | Emergency (ER) | payer OTHER ==
[2023-02-16 03:43] VITALS: RESP 18; TEMP 97.9
[2023-02-16] MEDS ORDERED: ONDANSETRON 4 MG/2 ML VIAL IVP STA (03:52)
[2023-02-16] MEDS ORDERED: SODIUM CHLORIDE 0.9% 1,000 ML IV STA (03:52)
[2023-02-16] MEDS ORDERED: HYDROmorphone 0.5 MG/0.5 ML SYRINGE IVP STA ×2 (03:53→07:26)
--- NOTE | 2023-02-16 04:17 | ED ---
General Adult HPI - General Source: patient, RN notes reviewed, old records reviewed Mode of arrival: ambulatory Limitations: no limitations <Robert Blount - Last Filed: 02/16/23 06:01> <Fabian Quinonez - Last Filed: 02/16/23 08:05> - General Chief complaint: Abdominal Pain Stated complaint: Gallstones Time Seen by Provider: 02/16/23 03:42 - History of Present Illness Initial comments: 63-year-old female presents for evaluation of right upper quadrant abdominal pain and several episodes of vomiting. This occurred after eating grapes. The patient has known history of gallstones which was confirmed on ultrasound about one month ago. Denies central chest pain. Denies fever. Denies any preceding symptoms. (Robert Blount) - Related Data Home Medications Medication Instructions Recorded Confirmed Ascorbic Acid [Vitamin C] 1,000 mg PO DAILY 11/04/21 11/04/21 Cholecalciferol [Vitamin D3 (25 25 mcg PO DAILY 11/04/21 11/04/21 Mcg = 1000 Iu)] Levothyroxine Sodium [Synthroid] 112 mcg PO DAILY 11/04/21 11/04/21 Magnesium 250 mg PO DAILY 11/04/21 11/04/21 Zinc 50 mg PO DAILY 11/04/21 11/04/21 hydroCHLOROthiazide [Hydrodiuril] 12.5 mg PO DAILY 11/04/21 11/04/21 Allergies Allergy/AdvReac Type Severity Reaction Status Date / Time No Known Allergies Allergy Verified 02/16/23 03:40 Review of Systems ROS Other: All systems not noted in ROS Statement are negative. <Robert Blount - Last Filed: 02/16/23 06:01> ROS Other: All systems not noted in ROS Statement are negative. <Fabian Quinonez - Last Filed: 02/16/23 08:05> ROS Statement: Those systems with pertinent positive or pertinent negative responses have been documented in the HPI. Past Medical History Past Medical History: Hypertension Additional Past Medical History / Comment(s): Graves disease, fluid retention History of Any Multi-Drug Resistant Organisms: C-DIFF Date of last positivie culture/infection: 01/2013 MDRO Source:: appendix Past Surgical History: Appendectomy Additional Past Surgical History / Comment(s): right eye, Past Psychological History: No Psychological Hx Reported Smoking Status: Never smoker Past Alcohol Use History: Occasional Past Drug Use History: None Reported <Robert Blount - Last Filed: 02/16/23 06:01> General Exam Limitations: no limitations General appearance: alert, in no apparent distress Head exam: Present: atraumatic, normocephalic Eye exam: Present: normal appearance, PERRL ENT exam: Present: normal exam Neck exam: Present: normal inspection. Absent: tenderness, meningismus Respiratory exam: Present: normal lung sounds bilaterally. Absent: respiratory distress Cardiovascular Exam: Present: regular rate, normal rhythm GI/Abdominal exam: Present: soft, tenderness (ruq). Absent: distended Neurological exam: Present: alert, oriented X3, CN II-XII intact. Absent: motor sensory deficit Psychiatric exam: Present: normal affect, normal mood Skin exam: Present: warm, dry, intact. Absent: cyanosis, diaphoretic <Robert Blount - Last Filed: 02/16/23 06:01> Course <Robert Blount - Last Filed: 02/16/23 06:01> Vital Signs 02/16/23 02/16/23 03:40 07:17 Temperature 97.9 F Pulse Rate 70 76 Respiratory 18 18 Rate Blood Pressure 168/84 181/83 O2 Sat by Pulse 98 100 Oximetry - Reevaluation(s) Reevaluation #1: 02/16/23 06:02 Patient reevaluated, symptoms improved (Robert Blount) Reevaluation #2: 02/16/23 0700 Patient care is signed out to Dr. Quinonez, awaiting ultrasound results (Robert Blount) Medical Decision Making - Lab Data Result diagrams: 02/16/23 04:09 02/16/23 04:09 <Robert Blount - Last Filed: 02/16/23 06:01> - Lab Data Result diagrams: 02/16/23 04:09 02/16/23 04:09 <Fabian Quinonez - Last Filed: 02/16/23 08:05> - Medical Decision Making Was pt. sent in by a medical professional or institution (, PA, CREDIT UNION MANAGER, urgent care, hospital, or [place] health care facility...) When possible be specific @ -No Did you speak to anyone other than the patient for history (EMS, parent, family, police, friend...)? What history was obtained from this source @ -No Did you review nursing and triage notes (agree or disagree)? Why? @ -I reviewed and agree with nursing and triage notes Were old charts reviewed (outside hosp., previous admission, EMS record, old EKG, old radiological studies, urgent care reports/EKG's, [place] health care facility records)? Report findings @ -No old charts were reviewed Differential Diagnosis (chest pain, altered mental status, abdominal pain women, abdominal pain men, vaginal bleeding, weakness, fever, dyspnea, syncope, headache, dizziness, GI bleed, back pain, seizure, CVA, palpatations, mental health, musculoskeletal)? @ -Differential Abdominal Pain Women: Appendicitis, Cholecystitis, diverticulosis, ischemic bowel, pancreatitis, hepatitis, UTI, gastroenteritis, AAA, incarcerated hernia, bowel obstruction, constipation, inflammatory bowel, hepatitis, peptic ulcer disease, splenic infarction, perforated viscus, vulvitis, , kidney stone, this is not meant to be an all-inclusive list EKG interpreted by me (3pts min.). @ -As above X-rays interpreted by me (1pt min.). @ -None done CT interpreted by me (1pt min.). @ -None done U/S interpreted by me (1pt. min.). @ -Results pending What testing was considered but not performed or refused? (CT, X-rays, U/S, labs)? Why? @ -None What meds were considered but not given or refused? Why? @ -None Did you discuss the management of the patient with other professionals (pro fessionals i.e. , PA, CREDIT UNION MANAGER, lab, RT, psych nurse, social media manager, water taxi operator, teacher, loan officer, case specialist)? Give summary @ -No Was smoking cessation discussed for >3mins.? @ -No Was critical care preformed (if so, how long)? @ -No Were there social determinants of health that impacted care today? How? (Homelessness, low income, unemployed, alcoholism, drug addiction, transporta tion, low edu. Level, literacy, decrease access to med. care, assisted, rehab)? @ -No Was there de-escalation of care discussed even if they declined (Discuss DNR or withdrawal of care, Hospice)? DNR status @ -No What co-morbidities impacted this encounter? (DM, HTN, Smoking, COPD, CAD, Cancer, CVA, ARF, Chemo, Hep., AIDS, mental health diagnosis, sleep apnea, morbid obesity)? @ -None Was patient admitted / discharged? Hospital course, mention meds given and route, prescriptions, significant lab abnormalities, going to OR and other pertinent info. @ -63-year-old female with right upper quadrant abdominal pain and vomiting. No known history of gallstones. Laboratory testing is unremarkable. Ultrasound is pending. Care signed out at shift change. (Robert Blount) 7:00 AM: Patient is a 63 by previous shift physician, Dr. Olvera. Briefly, patient is 63-year-old female presents with acute abdominal pain. She has no history of gallbladder disease. Plan also follow-up with pending ultrasounds. Laboratory evaluation reviewed by me shows no abnormalities. Physical exam: Imaging Interpreted by Me Shows Gallstones. At this point. Clinical presentation consistent with symptomatic gallstones. Patient advised to follow up with general surgeon for outpatient cholecystectomy. Return precautions discussed. She says she is known about having gall stones for approximately one month. She has not been appointment with general surgeon. She is given referrals to other general surgeons that may be able to schedule surgery quicker. Patient is agreeable with discharge. (Fabian Quinonez) - Lab Data Lab Results 02/16/23 02/16/23 02/16/23 Range/Units 04:09 04:09 04:09 WBC 9.5 (3.8-10.6) k/uL RBC 4.68 (3.80-5.40) m/uL Hgb 14.4 (11.4-16.0) gm/dL Hct 41.5 (34.0-46.0) % MCV 88.6 (80.0-100.0) fL MCH 30.8 (25.0-35.0) pg MCHC 34.7 (31.0-37.0) g/dL RDW 12.6 (11.5-15.5) % Plt Count 299 (150-450) k/uL MPV 7.6 Neutrophils % 85 % Lymphocytes % 11 % Monocytes % 2 % Eosinophils % 0 % Basophils % 0 % Neutrophils # 8.1 H (1.3-7.7) k/uL Lymphocytes # 1.0 (1.0-4.8) k/uL Monocytes # 0.2 (0-1.0) k/uL Eosinophils # 0.0 (0-0.7) k/uL Basophils # 0.0 (0-0.2) k/uL PT 9.6 (9.0-12.0) sec INR 0.9 (<1.2) APTT 24.5 (22.0-30.0) sec Sodium 141 (137-145) mmol/L Potassium 4.3 (3.5-5.1) mmol/L Chloride 104 (98-107) mmol/L Carbon Dioxide 27 (22-30) mmol/L Anion Gap 10 mmol/L BUN 15 (7-17) mg/dL Creatinine 0.67 (0.52-1.04) mg/dL Est GFR (CKD-EPI)AfAm >90 (>60 ml/min/1.73 sqM) Est GFR (CKD-EPI)NonAf >90 (>60 ml/min/1.73 sqM) Glucose 140 H (74-99) mg/dL Plasma Lactic Acid Adrian (0.7-2.0) mmol/L Calcium 9.8 (8.4-10.2) mg/dL Total Bilirubin 0.8 (0.2-1.3) mg/dL AST 32 (14-36) U/L ALT 25 (4-34) U/L Alkaline Phosphatase 82 (38-126) U/L Total Protein 7.7 (6.3-8.2) g/dL Albumin 4.6 (3.5-5.0) g/dL Amylase 47 (30-110) U/L Lipase 119 (23-300) U/L Urine Color Urine Appearance (Clear) Urine pH (5.0-8.0) Ur Specific [place] (1.001-1.035) Urine Protein (Negative) Urine Glucose (UA) (Negative) Urine Ketones (Negative) Urine Blood (Negative) Urine Nitrite (Negative) Urine Bilirubin (Negative) Urine Urobilinogen (<2.0) mg/dL Ur Leukocyte Esterase (Negative) Urine RBC (0-5) /hpf Urine WBC (0-5) /hpf Ur Squamous Epith Cells (0-4) /hpf Urine Mucus (None) /hpf 02/16/23 02/16/23 Range/Units 04:09 04:11 WBC (3.8-10.6) k/uL RBC (3.80-5.40) m/uL Hgb (11.4-16.0) gm/dL Hct (34.0-46.0) % MCV (80.0-100.0) fL MCH (25.0-35.0) pg MCHC (31.0-37.0) g/dL RDW (11.5-15.5) % Plt Count (150-450) k/uL MPV Neutrophils % % Lymphocytes % % Monocytes % % Eosinophils % % Basophils % % Neutrophils # (1.3-7.7) k/uL Lymphocytes # (1.0-4.8) k/uL Monocytes # (0-1.0) k/uL Eosinophils # (0-0.7) k/uL Basophils # (0-0.2) k/uL PT (9.0-12.0) sec INR (<1.2) APTT (22.0-30.0) sec Sodium (137-145) mmol/L Potassium (3.5-5.1) mmol/L Chloride (98-107) mmol/L Carbon Dioxide (22-30) mmol/L Anion Gap mmol/L BUN (7-17) mg/dL Creatinine (0.52-1.04) mg/dL Est GFR (CKD-EPI)AfAm (>60 ml/min/1.73 sqM) Est GFR (CKD-EPI)NonAf (>60 ml/min/1.73 sqM) Glucose (74-99) mg/dL Plasma Lactic Acid Adrian 1.5 (0.7-2.0) mmol/L Calcium (8.4-10.2) mg/dL Total Bilirubin (0.2-1.3) mg/dL AST (14-36) U/L ALT (4-34) U/L Alkaline Phosphatase (38-126) U/L Total Protein (6.3-8.2) g/dL Albumin (3.5-5.0) g/dL Amylase (30-110) U/L Lipase (23-300) U/L Urine Color Yellow Urine Appearance Clear (Clear) Urine pH 6.5 (5.0-8.0) Ur Specific [place] 1.020 (1.001-1.035) Urine Protein Negative (Negative) Urine Glucose (UA) Negative (Negative) Urine Ketones 1+ H (Negative) Urine Blood Negative (Negative) Urine Nitrite Negative (Negative) Urine Bilirubin Negative (Negative) Urine Urobilinogen <2.0 (<2.0) mg/dL Ur Leukocyte Esterase Trace H (Negative) Urine RBC 1 (0-5) /hpf Urine WBC 1 (0-5) /hpf Ur Squamous Epith Cells <1 (0-4) /hpf Urine Mucus Rare H (None) /hpf Disposition <Robert Blount - Last Filed: 02/16/23 06:01> Is patient prescribed a controlled substance at d/c from ED?: No Time of Disposition: 08:05 <Fabian Quinonez - Last Filed: 02/16/23 08:05> Clinical Impression: Biliary colic, Gallstones Disposition: HOME SELF-CARE Condition: Good Instructions (If sedation given, give patient instructions): Gallstones (ED) Referrals: Mars Zavala MD [Medical Doctor] - 1-2 days Robert Lassiter DO [Doctor of Osteopathic Medicine] - 1-2 days Uche Lewis MD [STAFF PHYSICIAN] - 1-2 days Maggie Ayala DO [Doctor of Osteopathic Medicine] - 1-2 days Concepcion Lisa MD [STAFF PHYSICIAN] - 1-2 days
[2023-02-16 04:41] LABS: Basophils % (A) 0 %; Eosinophils % (A) 0 %; HCT 41.5 % (34.0-46.0); HGB 14.4 gm/dL (11.4-16.0); Lymphocytes % (A) 11 %; MCH 30.8 pg (25.0-35.0); MCHC 34.7 g/dL (31.0-37.0); MCV 88.6 fL (80.0-100.0); Mean Platelet Volume 7.6; Monocytes # (A) 0.2 k/uL (0-1.0); Monocytes % (A) 2 %; Neutrophils # (A) 8.1 k/uL (1.3-7.7); Neutrophils % (A) 85 %; Platelet Count 299 k/uL (150-450); RBC 4.68 m/uL (3.80-5.40); RDW 12.6 % (11.5-15.5); WBC 9.5 k/uL (3.8-10.6)
[2023-02-16 04:52] LABS: Appearance,Urine Clear (Clear); Bilirubin,Urine Negative (Negative); Blood,Urine Negative (Negative); Color,Urine Yellow; Glucose,Urine (UA) Negative (Negative); Ketones,Urine 1+ (Negative); Leukocyte Esterase,Urine Trace (Negative); Mucus,Urine Rare /hpf; Nitrite,Urine Negative (Negative); PH, Urine 6.5 (5.0-8.0); Protein,Urine Negative (Negative); RBC,Urine 1 /hpf (0-5); Squamous Epithelial Cell,Urine <1 /hpf (0-4); Urobilinogen,Urine <2.0 mg/dL (<2.0); WBC,Urine 1 /hpf (0-5)
[2023-02-16 05:06] LABS: ALT 25 U/L (4-34); AST 32 U/L (14-36); African American GFR (CKD) >90 (>60 ml/min/1.73 sqM); Albumin 4.6 g/dL (3.5-5.0); Alkaline Phosphatase 82 U/L (38-126); Amylase 47 U/L (30-110); Anion Gap 10 mmol/L; Blood Urea Nitrogen 15 mg/dL (7-17); Calcium 9.8 mg/dL (8.4-10.2); Carbon Dioxide 27 mmol/L (22-30); Chloride 104 mmol/L (98-107); Glucose 140 mg/dL (74-99); Lipase 119 U/L (23-300); Non-African American GFR(CKD) >90 (>60 ml/min/1.73 sqM); Potassium 4.3 mmol/L (3.5-5.1); Sodium 141 mmol/L (137-145); Total Bilirubin 0.8 mg/dL (0.2-1.3); Total Protein 7.7 g/dL (6.3-8.2)
[2023-02-16 05:07] LABS: INR 0.9 (<1.2); Partial Thromboplastin Time 24.5 sec (22.0-30.0); Prothrombin Time 9.6 sec (9.0-12.0)
[2023-02-16 07:20] VITALS: BP 181/83; PULSE 76
--- NOTE | 2023-02-16 07:56 | US ---
EXAMINATION TYPE: US gallbladder DATE OF EXAM: 02/16/2023 COMPARISON: NONE CLINICAL HISTORY: ruq pain. RUQ pain, nausea and vomiting. history of gallstones TECHNIQUE: Multiple sonographic images of the right upper quadrant are obtained. FINDINGS: EXAM MEASUREMENTS: Liver Length: 16.0 cm Gallbladder Wall: 0.2 cm CBD: 0.5 cm Right Kidney: 9.9 x 4.1 x 4.0 cm LINE DEPARTMENT SUPERVISOR NOTES: Technical limitations due to large amount of overlying bowel content Pancreas: Obscured by bowel gas Liver: best seen intercostally, visualized portions appear wnl Gallbladder: stones noted Evidence for sonographic Vivar's sign: no CBD: limited evaluation Right Kidney: no evidence of hydronephrosis Suboptimal evaluation of pancreas due to overlying bowel gas visualized liver slightly heterogeneous without mass or ductal dilatation. Intraluminal mobile gallstones are present. No pericholecystic flu id or abnormal gallbladder wall thickening. No right-sided hydronephrosis. IMPRESSION: Gallstones without secondary ultrasound evidence for acute cholecystitis.
== END 2023-02-16 08:28 | disposition home or self-care (01) ==
LOC: EC 03:38
DX: K80.20 Calculus of gallbladder without cholecystitis without obstruction (principal); I10 Essential (primary) hypertension; Z79.899 Other long term (current) drug therapy
CPT/HCPCS: 36415; 80053; 82150; 83605; 83690; 85025; 85610; 85730; 81001; 76705; 99284; 96374; 96375; 96376; 96361; J2405; J1170

== ENCOUNTER 2023-03-16 08:00 | Day surgery (SDC) | payer OTHER ==
[2023-03-10 10:04] VITALS: BMI 30.9
[~2023-03-16 08:00] MED LIST: ACETAMINOPHEN TAB 500 MG TAB PO PRN; DEXAMETHASONE SOD PHOSPHATE 4 MG/ML 1 ML VIAL IV ONE; HEPARIN SODIUM,PORCINE/PF 5,000 UNIT/0.5 ML SYRINGE SQ PRN; HYDROmorphone 0.5 MG/0.5 ML SYRINGE IVP PRN; INDOCYANINE GREEN 25 MG VIAL IV STA; LACTATED RINGERS 1,000 ML IV SCH; ONDANSETRON 4 MG/2 ML VIAL IVP ONE
[2023-03-16] MEDS ORDERED: MIDAZOLAM 2 MG/2 ML VIAL IVP ONE (08:45)
[2023-03-16 08:49] VITALS: RESP 16
[2023-03-16] MEDS ORDERED: LIDOCAINE 2% INJ 20 MG/ML (2 ML VIAL) ONE (09:39)
[2023-03-16] MEDS ORDERED: ePHEDrine 50 MG/ML 1 ML VIAL ONE (09:39)
[2023-03-16] MEDS ORDERED: fentaNYL (PF) 50 MCG/ML 2 ML AMP ONE (09:39)
[2023-03-16] MEDS ORDERED: KETOROLAC 15 MG/ML 1 ML VIAL ONE (09:39)
[2023-03-16] MEDS ORDERED: MIDAZOLAM 2 MG/2 ML VIAL ONE (09:39)
[2023-03-16] MEDS ORDERED: ROCURONIUM 10 MG/ML (5 ML VIAL) IV ONE (09:39)
[2023-03-16] MEDS ORDERED: GLYCOPYRROLATE 0.2 MG/ML 2 ML VIAL ONE (09:39)
[2023-03-16] MEDS ORDERED: SUCCINYLCHOLINE CHLORIDE 200 MG/10 ML VIAL IV ONE (09:39)
[2023-03-16] MEDS ORDERED: PROPOFOL 10 MG/ML 20 ML VIAL IV ONE (09:39)
[2023-03-16] MEDS ORDERED: NEOSTIGMINE 1 MG/ML 10 ML VIAL ONE (09:39)
[2023-03-16] MEDS ORDERED: BUPIVACAIN-EPI 0.25%-1:200,000 30 ML VIAL SQ ONE (10:12)
[2023-03-16] MEDS ORDERED: LACTATED RINGERS 1,000 ML IV ONE (10:33)
[2023-03-16 11:01] VITALS: TEMP 97.3
--- NOTE | 2023-03-16 11:01 | P.OP ---
Date of Procedure: 03/16/23 Preoperative Diagnosis: Cholelithiasis Postoperative Diagnosis: Cholelithiasis Procedure(s) Performed: Laparoscopic robotic-assisted cholecystectomy Anesthesia: BELLO Surgeon: Uche Lewis Estimated Blood Loss (ml): 10 Pathology: other (Gallbladder) Condition: stable Disposition: PACU Description of Procedure: Patient's placed on the operative table in the supine position. She received general anesthesia. Her abdomen was prepped and draped usual fashion. An infra umbilical skin incision was made and then using a pair of [place] clamps the fascia abdominal wall was grasped. And then the Veress needles position to the peritoneal cavity. Position was confirmed with positive drop test. After adequate insufflation the a 5 mm trocar was placed into the peritoneal cavity. Next a 12 mm robotic trochars placed in the left epigastric position. And then a 8 mm robotic trochars placed in the right lateral and right mid position. The original 5 mm trocar was exchanged for an 8 mm robotic trocar. The patient's placed in reverse Trendelenburg right side up position. The patient was undocked the robot. There were some adhesions to the fundus of gallbladder. These were lysed which left cautery. The gallbladder was then grasped with the progress grasper and retracted cephalad. The fundus of the gallbladder was then grasped and retracted laterally. Using hook cautery the cystic duct was then dissected. Using a fire 5 the cystic duct was well-visualized. A critical view of safety was achieved. The cystic duct common hepatic duct was examined. Cyst duct was then clipped and divided with 2 clips being placed proximally area the gallbladder was then transected with cautery. The cystic artery was then dissected and then clipped and divided. The gallbladder is removed from liver bed using electrocautery. The gallbladder was then placed in an Endo Catch and brought out through the 12 mm trocar site. The abdomen was irrigated there is no bleeding seen. The patient was undocked the robot. The trochars withdrawn. The 12 mm trocar site was closed with 0 Vicryl suture. Skin was closed with interrupted 3-0 Monocryl suture. Dermabond was applied. Patient top she will was sent to recovery in stable condition.
[2023-03-16 12:08] VITALS: BP 162/74; PULSE 74
== END 2023-03-16 12:49 | disposition home or self-care (01) ==
LOC: OR 08:00
PROVIDERS: ATTEND Surgery
DX: K80.10 Calculus of gallbladder with chronic cholecystitis without obstruction (principal); I10 Essential (primary) hypertension; E05.00 Thyrotoxicosis with diffuse goiter without thyrotoxic crisis or storm; E03.9 Hypothyroidism, unspecified; Z90.49 Acquired absence of other specified parts of digestive tract; Z79.890 Hormone replacement therapy; Z88.8 Allergy status to other drugs, medicaments and biological substances
CPT/HCPCS: 47562; S2900; 88304

== ENCOUNTER → 2024-04-28 | Outpatient (CLI) | payer OTHER ==
--- NOTE | 2024-04-28 18:50 | MM ---
Reason for Exam: Screening (asymptomatic). Last mammogram was performed 2 year(s) and 1 month(s) ago. Patient History: Menarche at age 14. Patient has no children. Postmenopausal. Hormonal Contraceptives, starting at age 20 for 10 years. Cyst Aspiration on the Right side. Excisional Biopsy on the Left side. 04/23/2014, Benign Cyst Aspiration on the right side. 10/13/2004, Benign Cyst Aspiration on the right side. 10/13/2004, Benign Ultrasound-Guided Cyst Aspiration on the right side. Risk Values: Hanny 5 year model risk: 1.9%. NCI Lifetime model risk: 7.7%. Prior Study Comparison: 01/15/2021 Bilateral Screening Mammogram, [facility]. 10/09/2021 Right Diagnostic Mammogram, [facility]. 04/02/2022 Bilateral Screening Mammogram, [facility]. Tissue Density: The breasts are heterogeneously dense, which may obscure small masses. Findings: Analyzed By CAD. Chronic nodularity on the left. Unchanged areas of asymmetric density. There is no suspicious group of microcalcifications or new suspicious mass in either breast. Overall Assessment: Benign, BI-RAD 2 Management: Screening Mammogram of both breasts in 1 year. . Patient should continue monthly self-breast exams. A clinical breast exam by your physician is recommended on an annual basis. This exam should not preclude additional follow-up of suspicious palpable abnormalities. Note on Hanny scores and lifetime risk: 1. A Hanny score greater than 3% is considered moderate risk. If this is the case, consider specialist referral to assess eligibility for a risk reducing agent. 2. If overall lifetime risk for the development of breast cancer is 20% or higher, the patient may qualify for future screening with alternating mammogram and breast MRI. Electronically signed and approved by: He Umana M.D. Radiologist
== END | disposition home or self-care (01) ==
LOC: RADMAMWWP 07:38
PROVIDERS: ATTEND Family Medicine
DX: Z12.31 Encounter for screening mammogram for malignant neoplasm of breast (principal); Z78.0 Asymptomatic menopausal state
CPT/HCPCS: 77063; 77067